=== PATIENT | female | born 1990 | race Caucasian/White ===

== ENCOUNTER 2016-10-19 12:03 | Emergency (ER) | payer OTHER ==
[~2016-10-19] VITALS: Ht 160 cm; Wt 67.7 kg
[2016-10-19 12:07] VITALS: Ht 160 cm; Wt 67.7 kg
[2016-10-19 13:40] LABS: ADD SCAN DIFF NO
[2016-10-19 13:46] LABS: BASOPHILS % 0.2 % (0.0-2.0); EOSINOPHILS # 0.1 10^3/ul (0.0-0.5); EOSINOPHILS % 0.8 % (0.0-7.0); HEMATOCRIT 39.3 % (37.0-47.0); HEMOGLOBIN 13.1 g/dl (12.0-16.0); LYMPHOCYTES # 1.6 10^3/ul (0.8-2.9); LYMPHOCYTES % 8.9 % (15.0-51.0); MEAN CORPUSCULAR HGB CONC 33.3 g/dl (32.0-37.0); MEAN CORPUSCULAR VOLUME 86.9 fl (82.0-101.0); MONOCYTE # 0.6 10^3/ul (0.3-0.9); MONOCYTES % 3.4 % (0.0-11.0); NEUTROPHIL # 15.4 10^3/ul (1.6-7.5); NEUTROPHILS % 86.3 % (39.0-77.0); PLATELET COUNT 295 10^3/UL (140-415); RED BLOOD COUNT 4.52 10^6/ul (4.20-5.40); RED CELL DISTRIBUTION WIDTH 13.4 % (11.5-14.5); WHITE BLOOD COUNT 17.9 10^3/ul (4.8-10.8)
[2016-10-19 14:14] LABS: ADD UMIC YES; URINE BILIRUBIN (Dip) NEGATIVE (NEGATIVE); URINE BLOOD (Dip) TRACE (NEGATIVE); URINE COLOR YELLOW (YELLOW); URINE GLUCOSE (Dip) NEGATIVE (NEGATIVE); URINE KETONES (Dip) NEGATIVE (NEGATIVE); URINE LEUKOCYTE ESTERASE (Dip) NEGATIVE (NEGATIVE); URINE NITRITE (Dip) NEGATIVE (NEGATIVE); URINE TOTAL PROTEIN (Dip) NEGATIVE (NEGATIVE); URINE UROBILINOGEN (Dip) 0.2 E.U./dL (0.1-1.0)
[2016-10-19 14:24] LABS: ALBUMIN 4.8 g/dl (3.3-4.9)
[2016-10-19 14:25] LABS: POTASSIUM 3.5 mmol/L (3.5-5.1)
[2016-10-19 14:27] LABS: ALBUMIN/GLOBULIN RATIO 1.29; BILIRUBIN,INDIRECT 0.5 mg/dl (0-1.1); BILIRUBIN,TOTAL 0.5 mg/dl (0.2-1.3); CREATININE 0.75 mg/dl (0.44-1.00); TOTAL PROTEIN 8.5 g/dl (6.1-8.1)
[2016-10-19 14:28] LABS: CALCIUM 9.4 mg/dl (8.4-10.2)
[2016-10-19 14:38] LABS: SQUAMOUS EPITHELIAL CELL,UR MODERATE; URINE RBCS 0-2 /HPF (0)
--- NOTE | 2016-10-19 14:46 | ERD ---
ER Documentation Chief Complaint Date/Time DATE: 10/19/16 TIME: 14:43 Chief Complaint PELVIC PAIN, LMP 3 MOS AGO HPI This is a 26-year-old female that presents to the ER with multiple complaints. Patient states that yesterday she began to have lower pelvic pain. Pelvic pain is described as crampy and intermittent in nature. Patient also admits to diarrhea yesterday. Diarrhea is not bloody. She denies any nausea or vomiting. Patient also complains of some fever yesterday. She also to urinary frequency and dysuria. She admits to some white vaginal discharge, vaginal discharge does not smell bad. She denies any vaginal itching. Patient also complaining of a syncopal episode which lasted a few seconds today. Patient went back to normal mental status after syncopal episode. At the time she states she had a headache. Patient tried taking Tylenol for her pelvic pain which did not work. Patient has not had a menstrual period in 3 months. She took a test at home which was negative. ROS 12 point review of systems was done, all negative except per HPI. Medications Home Meds Active Scripts Loperamide Hcl* (Imodium*) 2 Mg Capsule, 2 MG PO .AFTER EA LOOSE BM Y for DIARRHEA, #10 TAB Prov:JUAN M ESTEVEZ 10/19/16 Naproxen* (Naprosyn*) 500 Mg Tablet, 500 MG PO BID Y for PAIN AND/OR INFLAMMATION, #30 TAB Prov:JUAN M ESTEVEZ 10/19/16 Allergies Allergies: Coded Allergies: No Known Allergy (Unverified , 10/19/16) PMhx/Soc Medical and Surgical Hx: pt denies Medical Hx, pt denies Surgical Hx Hx Alcohol Use: No Hx Substance Use: No Hx Tobacco Use: No Smoking Status: Never smoker Physical Exam Vitals Vital Signs Date Time Temp Pulse Resp B/P Pulse Ox O2 Delivery O2 Flow Rate FiO2 10/19/16 12:07 98.1 99 20 122/67 99 Physical Exam GENERAL: The patient is well developed and appropriate for usual state of health , in no apparent distress. HEENT: Atraumatic. CHEST: Clear to auscultation bilaterally. There are no rales, wheezes or rhonchi. HEART: Regular rate and rhythm. No murmurs, clicks, rubs or gallops. ABDOMEN: Soft nondistended, patient is tender to palpation in all quadrants of the abdomen. Good bowel sounds. No rebound or guarding. No gross peritonitis. No gross organomegaly or masses. No Ac sign or McBurney point tenderness. BACK: No midline or flank tenderness. NEURO: Alert and oriented. Cranial nerves II through XII are intact. Motor strength in all 4 extremities with 5/5 strength. Sensation grossly intact. Normal speech and gait. Negative Romberg SKIN: The skin is warm and dry. Result Diagram: 10/19/16 1337 10/19/16 1337 Results 24 hrs Laboratory Tests Test 10/19/16 13:37 10/19/16 13:45 White Blood Count 17.910^3/ul Red Blood Count 4.5210^6/ul Hemoglobin 13.1g/dl Hematocrit 39.3% Mean Corpuscular Volume 86.9fl Mean Corpuscular Hemoglobin 29.0pg Mean Corpuscular Hemoglobin Concent 33.3g/dl Red Cell Distribution Width 13.4% Platelet Count 22541^3/UL Mean Platelet Volume 12.0fl Neutrophils % 86.3% Lymphocytes % 8.9% Monocytes % 3.4% Eosinophils % 0.8% Basophils % 0.2% Nucleated Red Blood Cells % 0.0/100WBC Neutrophils # 15.410^3/ul Lymphocytes # 1.610^3/ul Monocytes # 0.610^3/ul Eosinophils # 0.110^3/ul Basophils # 0.010^3/ul Nucleated Red Blood Cells # 0.010^3/ul Sodium Level 142mmol/L Potassium Level 3.5mmol/L Chloride Level 100mmol/L Carbon Dioxide Level 26mmol/L Anion Gap 20 Blood Urea Nitrogen 13mg/dl Creatinine 0.75mg/dl Glucose Level 94mg/dl Calcium Level 9.4mg/dl Total Bilirubin 0.5mg/dl Direct Bilirubin 0.00mg/dl Indirect Bilirubin 0.5mg/dl Aspartate Amino Transf (AST/SGOT) 23IU/L Alanine Aminotransferase (ALT/SGPT) 19IU/L Alkaline Phosphatase 72IU/L Total Protein 8.5g/dl Albumin 4.8g/dl Globulin 3.70g/dl Albumin/Globulin Ratio 1.29 Urine Color YELLOW Urine Clarity CLEAR Urine pH 5.5 Urine Specific [place] >=1.030 Urine Ketones NEGATIVE Urine Nitrite NEGATIVE Urine Bilirubin NEGATIVE Urine Urobilinogen 0.2 E.U./dL Urine Leukocyte Esterase NEGATIVE Urine Microscopic RBC 0-2/HPF Urine Microscopic WBC 0-2/HPF Urine Squamous Epithelial Cells MODERATE Urine Hemoglobin TRACE Urine Glucose NEGATIVE% Urine Total Protein NEGATIVE Procedures/MDM Differential diagnosis includes but is not limited to appendicitis, hernia, UTI , constipation, ectopic , ovarian torsion, PID, Mittelschmerz, fibroid , tubo-ovarian abscess. This is a 26-year-old female that presents to the ER with multiple complaints. At this time etiology of pelvic pain is unknown however patient's physical examination is benign she is afebrile and well- appearing and her diagnostic tests were all negative. In regards to patient's syncopal episode patient did not have any evidence of arrhythmia as EKG was taken and read by Dr. Figueroa 93bpm no ST elevation no t wave inversion. There is no evidence of sepsis, hypoglycemia. Patient did not have any history of trauma. She is neurologically intact with no focal neurological episodes. This may have been a vasovagal episode. Patient likely has a viral process. Patient will be sent home with naproxen and with Imodium. Patient is to follow- up with his primary care doctor within 1-2 days or return to ER sooner if symptoms worsen. My medical decision making was shared with the patient she understands and agrees with plan. Departure Diagnosis: Primary Impression: Multiple complaints Condition: Stable JUAN M ESTEVEZ Oct 19, 2016 14:45
--- NOTE | 2016-10-19 14:56 | RADRPT ---
PROCEDURE: US Pelvis. CLINICAL INDICATION: Pelvic pain. TECHNIQUE: The pelvis was evaluated with transabdominal and transvaginal sonography in the axial a nd sagittal planes. COMPARISON: No prior study is available for comparison. FINDINGS: Uterus: 7.9 x 3.7 x 4.6 cm. Endometrium: 7.6 mm. Right ovary: 4.0 x 2.5 x 2.4 cm. Left ovary: 3.4 x 2.0 x 2.0 cm. Uterine masses: None. Small benign Nabothian cysts are present in the cervix. Ovarian masses: None. Color Doppler and pulsed Doppler sonography demonstrate normal flow to the ova ricco. Other pelvic masses: None. Free fluid: There is trace free fluid in the cul-de-sac, physiologic. IMPRESSION: 1. Benign Nabothian cysts in the cervix. 2. Physiologic free fluid in the cul-de-sac. 3. Otherwise normal pelvic ultrasound. RPTAT: QQ .Jose Estrada MD, MD Date Time Electronically viewed and signed by .Jose Estrada MD, on 10/19/2016 14:55 .R/
--- NOTE | 2016-10-19 15:45 | RADRPT ---
PROCEDURE: CT Abdomen and Pelvis without contrast. CLINICAL INDICATION: Lower abdominal pain for 3 days. TECHNIQUE: CT scan of the abdomen and pelvis without contrast was performed on a multidetector hig h-resolution CT scanner. The patient was scanned without intravenous contrast. Coronal and sagittal reformatted images were obtained from the axial source images. Images were reviewed on a high-resol [employer] PACS workstation. One or more of the following dose reduction techniques were used: Automated exposure control, adjustment of the mA and/or kV according to patient size, use of iterative recon struction technique. The total exam CTDI equals 12.22 mGy and the total exam DLP equals 689.55 mGy- cm. COMPARISON: Correlation with pelvic ultrasound from the same day. FINDINGS: CT abdomen: The lung bases are clear. The heart size is normal, without pericardial thickening or effusion. The liver is normal in size and density without focal mass or intrahepatic biliary dilatation. The spleen is normal in size and homogeneous in density. The stomach is grossly unremarkable. The panc reas as visualized is normal. The gallbladder and biliary tree are unremarkable and there is no loulou dence for biliary dilatation. The adrenal glands are symmetric and normal. The kidneys are symmetr ically unremarkable as well. No renal calculus or obstructive uropathy or mass lesion is seen. The aorta is of normal caliber. There is no retroperitoneal lymphadenopathy. The zhao hepatis reg ion is clear. The small bowel and mesentery, as visualized, are unremarkable. There is a small fat containing umbilical hernia. CT pelvis: The small bowel loops situated within the pelvis are unremarkable. The pelvic organs are normal. T he pelvic sidewalls and inguinal regions are clear. The sigmoid colon and rectum are unremarkable. The appendix is normal. No mass or lymphadenopathy is seen. A small amount of pelvic free fluid is likely physiologic. No acute inflammation is seen. Calcifications in the left pelvis likely represe nt phleboliths. The surrounding osseous structures are unremarkable. No osteolytic or osteoblastic lesion is detec andrea. IMPRESSION: 1. No abdominal or pelvic acute inflammatory process, mass, or lymphadenopathy. 2. Small fat-containing umbilical hernia. RPTAT: JJ .Herson Stafford MD, MD Date Time Electronically viewed and signed by .Herson Stafford MD, on 10/19/2016 15:45 .A/
[2016-10-19] MEDS ORDERED: NAPR-260 PO (16:06)
[2016-10-19] MEDS ORDERED: LOPE2CAP PO (16:07)
[2016-10-19 16:30] VITALS: BP 112/60; PULSE 98; RESP 19; TEMP 98.2
== END 2016-10-19 16:30 | disposition home or self-care (01) ==
LOC: FTE 12:03
DX: R10.84 Generalized abdominal pain (principal); R19.7 Diarrhea, unspecified; R50.9 Fever, unspecified; R35.0 Frequency of micturition; R30.0 Dysuria; N89.8 Other specified noninflammatory disorders of vagina; R55 Syncope and collapse; R51 Headache
CPT/HCPCS: 74176; 76830; 76856; 80053; 81001; 85025; 93005; Z7502; 81003

== ENCOUNTER 2017-05-16 15:56 | Emergency (ER) | payer OTHER ==
[~2017-05-16] VITALS: Ht 160 cm; Wt 75.9 kg
[~2017-05-16 15:56] MED LIST: LOPE2CAP PO; NAPR-260 PO
[2017-05-16 16:08] VITALS: Ht 160 cm; Wt 75.9 kg
[2017-05-16 19:22] LABS: ADD UMIC YES; UR ASCORBIC ACID NEGATIVE (NEGATIVE); UR BACTERIA FEW /HPF (NONE SEEN); UR BILIRUBIN (Dip) NEGATIVE (NEGATIVE); UR BLOOD (Dip) 2+ mg/dL (NEGATIVE); UR CLARITY CLEAR (CLEAR); UR COLOR YELLOW (YELLOW); UR GLUCOSE (Dip) NEGATIVE (NEGATIVE); UR KETONES (Dip) NEGATIVE (NEGATIVE); UR LEUKOCYTE ESTERASE (Dip) NEGATIVE Leu/ul (NEGATIVE); UR NITRITE (Dip) NEGATIVE (NEGATIVE); UR RBC 1 /HPF (0-5); UR SPECIFIC GRAVITY (Dip) 1.015 (1.003-1.030); UR SQUAMOUS EPITHELIAL CELL FEW /HPF (FEW); UR TOTAL PROTEIN (Dip) NEGATIVE (NEGATIVE); UR UROBILINOGEN (Dip) NEGATIVE (NEGATIVE)
--- NOTE | 2017-05-16 19:59 | RADRPT ---
PROCEDURE: US Pelvis. CLINICAL INDICATION: Pelvic pain TECHNIQUE: Transabdominal and transvaginal pelvic ultrasound are performed. COMPARISON: 10/19/2016 FINDINGS: The uterus is normal in echogenicity and anteverted in orientation. The uterus measures 10.0 x 6.1 x 7.4 cm. No focal fibroids are identified. Within the endometrial canal, gestational sac with norm al double decidual reaction is identified. pole is identified measuring 0.24 cm. This correspo nds to an estimated age of 5 weeks 5 days. The gestational sac measures 3.34 cm corresponding to an estimated age of 8 weeks 3 days. No cardiac activity is detected. Small subchorionic hemorrhage is s een. The ovaries are not visualized. No adnexal masses are seen. There is no free fluid in the pelvis IMPRESSION: 1. Intrauterine is identified. By crown-rump length the gestation measures 5 weeks 5 days . No cardiac activity is identified at this time. Correlation with serial beta HCG level and a follo w-up ultrasound is recommended to exclude demise. 2. Small subchorionic hemorrhage is seen. This should also be followed. 3. The ovaries are not visualized. There are no obvious adnexal masses. 4. No free fluid in the pelvis RPTAT: HH .Martin Whitehead MD, MD Date Time Electronically viewed and signed by .Martin Whitehead MD, MD on 05/16/2017 19:59 .W/
[2017-05-16 20:09] LABS: BASOPHIL # 0.1 10^3/ul (0.0-0.1); BASOPHILS % 0.5 % (0.0-2.0); EOSINOPHILS # 0.4 10^3/ul (0.0-0.5); EOSINOPHILS % 2.3 % (0.0-7.0); HEMATOCRIT 37.7 % (37.0-47.0); HEMOGLOBIN 12.6 g/dl (12.0-16.0); LYMPHOCYTES # 3.9 10^3/ul (0.8-2.9); MEAN CORPUSCULAR HEMOGLOBIN 29.1 pg (29.0-33.0); MEAN CORPUSCULAR HGB CONC 33.4 g/dl (32.0-37.0); MEAN CORPUSCULAR VOLUME 87.1 fl (82.0-101.0); MONOCYTE # 0.9 10^3/ul (0.3-0.9); MONOCYTES % 5.8 % (0.0-11.0); NEUTROPHIL # 10.4 10^3/ul (1.6-7.5); NEUTROPHILS % 65.8 % (39.0-77.0); PLATELET COUNT 268 10^3/UL (140-415); RED BLOOD COUNT 4.33 10^6/ul (4.20-5.40); RED CELL DISTRIBUTION WIDTH 14.2 % (11.5-14.5); WHITE BLOOD COUNT 15.8 10^3/ul (4.8-10.8)
--- NOTE | 2017-05-16 21:17 | ERD ---
ER Documentation Chief Complaint Chief Complaint 8 WEEKS WITH LOWER PELVIC PAIN X 5 DAYS, DENIES VAG BLEED/SPOTTING (LILLIAM GUZMAN PA-C) HPI Otherwise healthy 27-year-old female presenting with a chief complaint of pelvic pain. Patient is 9 weeks . . No prior complications and pregnancies. Describes the pain as 5 out of 10 and refuses pain medications at this time. Denies bleeding or spotting, fever, dysuria, nausea, vomiting, diarrhea, vaginal discharge, foul odor, change in fetus quickening, or identifiable patterns of symptoms. Patient has no other complaints and describes no other associated manifestations. Nursing notes have been reviewed and are consistent with history given. (LILLIAM GUZMAN PA-C) ROS All systems reviewed and are negative except as per history of present illness. (LILLIAM GUZMAN PA-C) Medications Home Meds Active Scripts Loperamide Hcl* (Imodium*) 2 Mg Capsule, 2 MG PO .AFTER EA LOOSE BM Y for DIARRHEA, #10 TAB Prov:JUAN M ESTEVEZ 10/19/16 Naproxen* (Naprosyn*) 500 Mg Tablet, 500 MG PO BID Y for PAIN AND/OR INFLAMMATION, #30 TAB Prov:HERBJUAN M C 10/19/16 Allergies Allergies: Coded Allergies: No Known Allergy (Unverified , 10/19/16) PMhx/Soc History of Surgery: No Anesthesia Reaction: No Hx Neurological Disorder: No Hx Respiratory Disorders: No Hx Cardiac Disorders: No Hx Psychiatric Problems: No Hx Miscellaneous Medical Probl: No Hx Alcohol Use: No Hx Substance Use: No Hx Tobacco Use: No Smoking Status: Never smoker (LILLIAM GUZMAN PA-C) Physical Exam Physical Exam Const: [] Head: Atraumatic Eyes: Normal Conjunctiva ENT: Normal External Ears, Nose and Mouth. Neck: Full range of motion..~ No meningismus. Resp: Clear to auscultation bilaterally Cardio: Regular rate and rhythm, no murmurs Abd: Soft, non tender, non distended. Normal bowel sounds Skin: No petechiae or rashes Back: No midline or flank tenderness Ext: No cyanosis, or edema Neur: Awake and alert Psych: Normal Mood and Affect No pelvic tenderness or masses palpated (LILLIAM GUZMAN PA-C) Results 24 hrs Laboratory Tests Test 05/16/17 18:50 05/16/17 19:00 Urine Color YELLOW Urine Clarity CLEAR Urine pH 5.0 Urine Specific [place] 1.015 Urine Ketones NEGATIVEmg/dL Urine Nitrite NEGATIVEmg/dL Urine Bilirubin NEGATIVEmg/dL Urine Urobilinogen NEGATIVEmg/dL Urine Leukocyte Esterase NEGATIVELeu/ul Urine Microscopic RBC 1/HPF Urine Microscopic WBC 1/HPF Urine Squamous Epithelial Cells FEW/HPF Urine Bacteria FEW/HPF Urine Hemoglobin 2+mg/dL Urine Glucose NEGATIVEmg/dL Urine Total Protein NEGATIVEmg/dl White Blood Count 15.810^3/ul Red Blood Count 4.3310^6/ul Hemoglobin 12.6g/dl Hematocrit 37.7% Mean Corpuscular Volume 87.1fl Mean Corpuscular Hemoglobin 29.1pg Mean Corpuscular Hemoglobin Concent 33.4g/dl Red Cell Distribution Width 14.2% Platelet Count 32650^3/UL Mean Platelet Volume 12.0fl Neutrophils % 65.8% Lymphocytes % 25.0% Monocytes % 5.8% Eosinophils % 2.3% Basophils % 0.5% Nucleated Red Blood Cells % 0.0/100WBC Neutrophils # 10.410^3/ul Lymphocytes # 3.910^3/ul Monocytes # 0.910^3/ul Eosinophils # 0.410^3/ul Basophils # 0.110^3/ul Nucleated Red Blood Cells # 0.010^3/ul Beta HCG, Quantitative 93249.0mIU/ml (AURELIANO PERRIN MD) Procedures/MDM Otherwise healthy 27-year-old female presented with a chief complaint of pelvic pain while 9 weeks . Ultrasound showed 5 weeks 5 days by measurements without cardiac activity. Most consistent findings are with spontaneous . CBC: WBC 15.8. Beta-hC.0 Urinalysis: Bacteria few. 2+ hemoglobin. Few epithelial cells. Ultrasound: 1. Intrauterine is identified. By crown-rump length the gestation measures 5 weeks 5 days. No cardiac activity is identified at this time. Correlation with serial beta HCG level and a follow-up ultrasound is recommended to exclude demise. 2. Small subchorionic hemorrhage is seen. This should also be followed. 3. The ovaries are not visualized. There are no obvious adnexal masses. 4. No free fluid in the pelvis OB was consulted and has recommended followup outpatient in 2 days. I have presented the case to my attending Dr. Perrin who is in agreement with OB. Printout of results have been given to the patient. I have little suspicion for SBI, ectopic . I am unable to rule out demise at this time. Pt has verbally responded they understand their current status and plan of management and has agreed. Stable for DC. (LILLIAM GUZMAN PA-C) Chart was assigned to me for cosignature after the end of my shift, and was unable to be reviewed until several days following time at which the patient was seen. I do not recall the mid-level provider discussing the patient's care with me at that time the patient was in the emergency department. I did not personally evaluate this patient. I have reviewed the mid-level's documentation , and based upon the available data, the decision making appears appropriate. (AURELIANO PERRIN MD) Departure Diagnosis: Primary Impression: Pelvic pain affecting Trimester: first trimester Qualified Code: O26.891 - Pelvic pain affecting in first trimester, antepartum Additional Impression: Pelvic pain affecting in first trimester, antepartum Condition: Stable Additional Instructions: Follow up in 2 days with OBGYN. Return if sxs worsen or change. Supportive therapy as discussed. LILLIAM GUZMAN PA-C May 16, 2017 21:17 AURELIANO PERRIN MD May 26, 2017 22:06
[2017-05-16 21:35] VITALS: BP 127/77; PULSE 72; RESP 18; TEMP 99.7
== END 2017-05-16 21:37 | disposition home or self-care (01) ==
LOC: FTE 15:56
DX: O26.891 Other specified pregnancy related conditions, first trimester (principal); R10.2 Pelvic and perineal pain; Z3A.01 Less than 8 weeks gestation of pregnancy
CPT/HCPCS: 36415; 76801; 76817; 81001; 84702; 85025; 86900; 86901; Z7502

== ENCOUNTER 2018-03-29 22:08 | Emergency (ER) | END 2018-03-30 02:11 | disposition home or self-care (01) ==